=== PATIENT | male | born 1955 | race Caucasian/White ===

== ENCOUNTER 2020-06-09 13:27 | Emergency (ER) | payer MEDICARE ==
[~2020-06-09] VITALS: Ht 170.2 cm; Wt 86.0 kg
[2020-06-09 13:56] VITALS: BP 110/56
[2020-06-09] MEDS ORDERED: AMLO-93 PO (14:09)
[2020-06-09] MEDS ORDERED: OMEP-50 PO (14:09)
[2020-06-09] MEDS ORDERED: ALBU8HFA PO (14:09)
[2020-06-09] MEDS ORDERED: LEVO50TA8 PO (14:09)
[2020-06-09] MEDS ORDERED: LISI1TAB51 PO (14:09)
== END 2020-06-09 17:11 | disposition home or self-care (01) ==
LOC: ER 13:28
DX: I10 Essential (primary) hypertension (principal); E07.89 Other specified disorders of thyroid; Z76.0 Encounter for issue of repeat prescription
CPT/HCPCS: 29505; 99281; 99283

== ENCOUNTER 2021-06-12 11:05 | Emergency (ER) | payer MEDICARE ==
[~2021-06-12] VITALS: Ht 170.2 cm; Wt 89.1 kg
[~2021-06-12 11:05] MED LIST: LEVO50TA8 PO; LISI1TAB51 PO; OMEP-50 PO
[2021-06-12 11:49] LABS: BASOPHILS % (AUTO) 0.5 % (0-1); EOSINOPHILS # (AUTO) 0.1 X10'3 (0-0.9); EOSINOPHILS % (AUTO) 1.6 % (0-6); HEMATOCRIT 45.5 % (42.0-52.0); HEMOGLOBIN 15.4 g/dl (14.0-17.9); LYMPHOCYTES # (AUTO) 1.7 X10'3 (1.1-4.8); LYMPHOCYTES % (AUTO) 33.8 % (21-51); MEAN CORPUSCULAR HEMOGLOBIN 29.8 PG (27.0-31.0); MEAN CORPUSCULAR HGB CONC 33.9 g/dL (33.0-36.5); MEAN CORPUSCULAR VOLUME 87.9 FL (78-98); MONOCYTES # (AUTO) 0.5 X10'3 (0-0.9); MONOCYTES % (AUTO) 10.5 % (2-12); NEUTROPHILS # (AUTO) 2.7 X10'3 (1.8-7.7); NEUTROPHILS % (AUTO) 53.6 % (42-75); PLATELET COUNT 250 X10'3 (140-440); RED BLOOD COUNT 5.17 X10'6 (4.70-6.10); RED CELL DISTRIBUTION WIDTH 14.2 % (11.5-14.5)
[2021-06-12 12:12] LABS: ALANINE AMINOTRANSFERASE 32 U/L (12-78); ALKALINE PHOSPHATASE 66 IU/L (46-116); ANION GAP 8 (8-16); ASPARTATE AMINO TRANSFERASE 23 U/L (10-37); BILIRUBIN,TOTAL 0.6 MG/DL (0.1-1.0); BLOOD UREA NITROGEN 11 MG/DL (7-18); BUN/CREATININE RATIO 14.5 (5.4-32.0); CALCIUM 9.4 MG/DL (8.5-10.1); CHLORIDE 103 MMOL/L (99-107); CREATININE 0.76 MG/DL (0.60-1.10); GLUCOSE 98 MG/DL (70-104); LIPASE 85 U/L (73-393); POTASSIUM 3.6 MMOL/L (3.5-5.1); SODIUM 141 MMOL/L (135-145); TOTAL CARBON DIOXIDE 30.2 MMOL/L (24-32); TOTAL PROTEIN 8.2 G/DL (6.4-8.2); eGFR > 90 ML/MIN
[2021-06-12 12:34] LABS: CLARITY,URINE CLEAR (Clear); GLUCOSE, URINE NEGATIVE (Neg); KETONES,URINE NEGATIVE (Neg); LEUKOCYTE ESTERASE ,URINE NEGATIVE (Neg); NITRITES, URINE NEGATIVE (Neg); OCCULT BLOOD,URINE TRACE-LYSED (Neg); PH,URINE 7.5 (4.8-8.0); PROTEIN,URINE NEGATIVE (Neg); UROBILINOGEN,URINE 0.2 E.U/dL (0.2-1.0)
[2021-06-12 12:38] LABS: COLOR,URINE STRAW (Yellow); UA COLLECTION TYPE CLN CATCH MIDSTREAM
[2021-06-12 12:39] LABS: RBC,URINE 0-2 /HPF (0-2); WBC,URINE NONE SEEN /HPF (0-4)
[2021-06-12 12:40] LABS: BACTERIA,URINE NONE SEEN /HPF (Neg); MUCUS STRANDS NONE SEEN /LPF (Neg); SQUAMOUS EPITHELIAL CELL,UR NONE SEEN /LPF (FEW)
[2021-06-12 15:20] VITALS: BP 155/67
== END 2021-06-12 15:21 | disposition home or self-care (01) ==
LOC: ER 11:05
DX: R10.30 Lower abdominal pain, unspecified (principal); R14.0 Abdominal distension (gaseous); R19.7 Diarrhea, unspecified; I10 Essential (primary) hypertension; E03.9 Hypothyroidism, unspecified; Z72.89 Other problems related to lifestyle; Z88.5 Allergy status to narcotic agent; Z79.899 Other long term (current) drug therapy; Z98.890 Other specified postprocedural states
CPT/HCPCS: 36415; 80053; 81001; 83690; 85025; 99283

== ENCOUNTER 2023-07-30 08:13 | Emergency (ER) | payer MEDICARE ==
[~2023-07-30] VITALS: Ht 170.2 cm; Wt 83.6 kg
[~2023-07-30 08:13] MED LIST changes: -OMEP-50 PO; +OMEP20CA16 PO
[2023-07-30 08:26] VITALS: TEMP 98.3
[2023-07-30] MEDS ORDERED: diphenhydrAMINE 50 mg/ml inj IV ONE (09:10)
[2023-07-30] MEDS ORDERED: HYDROcodone/acetaminophen 5mg/325mg tablet PO ONE (09:10)
[2023-07-30] MEDS ORDERED: ketorolac trometh. 30mg/ml inj. IV ONE (09:10)
[2023-07-30 10:55] LABS: BILIRUBIN,URINE NEGATIVE (Neg); CLARITY,URINE CLEAR (Clear); COLOR,URINE YELLOW (Yellow); GLUCOSE, URINE NEGATIVE (Neg); KETONES,URINE 15 mg/dl (Neg); LEUKOCYTE ESTERASE ,URINE NEGATIVE (Neg); NITRITES, URINE NEGATIVE (Neg); OCCULT BLOOD,URINE NEGATIVE (Neg); PH,URINE 7.5 (4.8-8.0); PROTEIN,URINE NEGATIVE (Neg); UROBILINOGEN,URINE 0.2 E.U/dL (0.2-1.0)
[2023-07-30 10:56] LABS: UA COLLECTION TYPE URINAL
[2023-07-30 11:40] VITALS: BP 137/71; PULSE 53; RESP 18; O2SAT 96
== END 2023-07-30 11:42 | disposition home or self-care (01) ==
LOC: ER 08:14
DX: R30.0 Dysuria (principal); I10 Essential (primary) hypertension; E03.9 Hypothyroidism, unspecified; Z88.5 Allergy status to narcotic agent; Z79.899 Other long term (current) drug therapy
CPT/HCPCS: 81003; 99284